=== PATIENT | male | born 2000 | race Hispanic/Latino ===

== ENCOUNTER 2019-04-06 09:08 | Emergency (ER) | payer BC ==
--- NOTE | 2019-04-06 09:36 | RAD ---
EXAM: CHEST ONE VIEW HISTORY: Syncope. COMPARISON: None FINDINGS: The cardiac silhouette and pulmonary vasculature is within normal limits. The lungs are clear. The os seous structures are intact. There is a metallic density (60%) densities overlying the right lateral lung base likely due to overlying artifact. Clinical correlation suggested. IMPRESSION: No acute cardiopulmonary process.
[2019-04-06 09:53] LABS: #Eosinphils 0.2 thou/uL (0.0-0.7); #Lymphocytes 0.9 thou/uL (1.20-3.40); #Monocytes 0.3 thou/uL (0.11-0.59); #Neutrophils 3.9 thou/uL (1.40-6.50); %Basophils 0.7 % (0.0-1.0); %Eosinophils 4.2 % (0.0-10.0); %Lymphocytes 17.4 % (28.0-48.0); %Monocytes 5.1 % (0.0-4.0); %Neutrophils 72.5 % (31.0-61.0); Hemoglobin 15.5 g/dL (14.0-18.0); Mean Corpuscular HGB CONC 34.1 g/dL (32.0-36.0); Mean Corpuscular Hemoglobin 28.9 pg (25.0-35.0); Mean Corpuscular Volume 84.6 fL (78.0-98.0); Mean Platelet Volume 9.6 fL (7.4-10.4); Platelet Count 135 thou/uL (130-400); RBC Distribution Width 12.1 % (11.5-14.5); Red Blood Cell (RBC) Count 5.38 mill/uL (4.00-5.20); White Blood Cell (WBC) Count 5.4 thou/uL (4.8-10.8)
[2019-04-06 10:17] LABS: ALT (SGPT) 16 U/L (8-55); AST (SGOT) 26 U/L (5-34); Albumin 4.9 g/dL (3.5-5.0); Alkaline Phosphatase 91 U/L (50-130); Anion Gap 15 mmol/L (10-20); BUN (Urea Nitrogen) 21 mg/dL (8.9-20.6); Bilirubin, Total 0.6 mg/dL (0.2-1.2); Calc. Creatinine Clearance 0 mL/min (70-130); Carbon Dioxide 22 mmol/L (22-29); Chloride 112 mmol/L (98-107); Estimated GFR-MDRD 64; Globulin 2.3 g/dL (2.4-3.5); Glucose 90 mg/dL (70-105); Potassium 4.5 mmol/L (3.5-5.1); Protein, Total 7.2 g/dL (6.0-8.3); Sodium 144 mmol/L (136-145)
[2019-04-06 14:40] LABS: Troponin I 0.072 ng/mL (< 0.028)
--- NOTE | 2019-04-09 16:56 | EKG ---
Test Reason : Blood Pressure : / mmHG Vent. Rate : 086 BPM Atrial Rate : 086 BPM P-R Int : 170 ms QRS Dur : 094 ms QT Int : 340 ms P-R-T Axes : 068 043 023 degrees QTc Int : 406 ms Normal sinus rhythm with sinus arrhythmia Left atrial enlargement Left ventricular hypertrophy Abnormal ECG Confirmed by FRIDA SMITH DO ([id number]), purchasing expeditor HE JAMESON ([id number]) on 04/09/2019 4:56:00 PM Referred By: Confirmed By:FRIDA SMITH DO
== END 2019-04-06 15:33 | disposition home or self-care (01) ==
LOC: ERS 09:08
DX: T67.5XXA Heat exhaustion, unspecified, initial encounter (principal)
CPT/HCPCS: 36415; 71045; 80053; 84484; 85025; 85379; 93005; 94760; 96360; 96361